=== PATIENT | female | born 1995 | race African-American/Black ===

== ENCOUNTER 2019-12-13 21:46 | Inpatient (IN) ==
[2019-12-13] MEDS ORDERED: ONDANSETRON 4 MG/2 ML VIAL IV PRN (21:54)
[2019-12-13 22:34] LABS: Basophils % 0.5 % (0.0-0.8); Eosinophils # 0.1 10*3/uL (0.0-0.87); Eosinophils % 0.7 % (0.00-10.9); Hematocrit 34.8 VOL% (35.7-47.0); Hemoglobin 11.7 GM/DL (12.0-16.0); Immature Granulocytes % 0.4 %; Immature Granulocytes Absolute 0.03 #; Lymphocytes # 1.8 10*3/uL (1.4-4.0); Lymphocytes % 21.4 % (21.3-54.2); Mean Corpuscular HGB Conc 33.6 GM/DL (32-36); Mean Corpuscular Volume 91.3 FL (87-102); Monocytes % 11.5 % (1.7-12.7); Neutrophils % 65.5 % (38.7-73.9); Platelet Count 156 T/CUMM (130-400); Red Blood Count 3.81 MC/CUMM (3.8-5.5); Red Cell Distribution Width 13.4 % (9.3-17.3); White Blood Count 8.2 T/CUMM (4-12)
[2019-12-13 22:57] LABS: Albumin 2.6 G/DL (3.4-5.0); Bilirubin,Total 0.5 MG/DL (0.2-1.0); Calcium 8.6 MG/DL (8.5-10.1); Osmolality,Calculated 271.8 MOS/KG (273-304); Total Protein 7.3 G/DL (6.4-8.3)
[2019-12-14] MEDS ORDERED: AMPICILLIN INJ 2,000 MG in SODIUM CHLORIDE 0.9% 100 ML IV ONE
[2019-12-14] MEDS: LACTATED RINGERS 1,000 ML IV SCH ×2 (00:06→19:23)
[2019-12-14] MEDS ORDERED: LACTATED RINGERS 1,000 ML IV ONE ×2 (04:00→08:43)
[2019-12-14] MEDS ORDERED: BUTORPHANOL 2 MG/ML VIAL IV PRN (04:00)
[2019-12-14] MEDS: AMPICILLIN INJ 1,000 MG in SODIUM CHLORIDE 0.9% 100 ML IV SCH ×3 (04:02→12:10)
[2019-12-14] MEDS ORDERED: PROMETHAZINE 25 MG/1 ML VIAL IM ONE (08:43)
[2019-12-14] MEDS ORDERED: ONDANSETRON 4 MG/2 ML VIAL IV ONE (08:43)
[2019-12-14] MEDS ORDERED: diphenhydrAMINE 50 MG/1 ML VIAL IV PRN ×2 (08:43)
[2019-12-14] MEDS ORDERED: FAMOTIDINE 20 MG/2 ML VIAL IV ONE (08:43)
[2019-12-14] MEDS ORDERED: CITRIC ACID/SODIUM CITRATE 30 ML UDCUP PO ONE (08:43)
[2019-12-14] MEDS ORDERED: ePHEDrine 50 MG/ML VIAL IV PRN (08:43)
[2019-12-14] MEDS ORDERED: NALOXONE 0.4 MG/ML VIAL IV PRN (08:43)
[2019-12-14] MEDS ORDERED: hydrOXYzine HCL 25 MG/1 ML VIAL IM PRN (08:43)
[2019-12-14] MEDS: fentaNYL 2 MCG/ROPIV 0.2% EPID 100 ML EPIDURAL SCH ×2 (09:34→15:45)
[2019-12-14 11:02] LABS: Apearance,Urine CLEAR (Clear); Bilirubin,Urine Negative (Negative); Blood, Urine Negative (Negative); Glucose,Urine (UA) Negative (Negative); Ketones,Urine Negative (Negative); Mucus,Urine Occasional /LPF (Occasional); Nitrite,Urine Negative (Negative); Protein,Urine Negative; RBC,Urine <1 /HPF (0-4); Squamous Epithelial Cell,Urine Occasional /HPF (0-10); Urine Color Amber (Yellow); Urine Specific Gravity 1.023 (1.001-1.035); WBC,Urine <1 /HPF (0-6)
[2019-12-14] MEDS ORDERED: OXYTOCIN/LR 20 UNIT/1,000 ML BAG IV SCH (12:30)
[2019-12-14] MEDS ORDERED: TRANEXAMIC ACID 1,000 MG/10 ML VIAL ONE (16:14)
[2019-12-14] MEDS ORDERED: miSOPROStoL 200 MCG TABLET ONE (16:14)
[2019-12-14] MEDS ORDERED: METHYLERGONOVINE 0.2 MG/1 ML AMP ONE (16:15)
[2019-12-14] MEDS ORDERED: CARBOPROST TROMETHAMINE 250 MCG/ML AMP IM ONE (16:15)
[2019-12-14] MEDS ORDERED: LIDOCAINE 1% 50 ML VIAL ONE (16:15)
[2019-12-14 17:09] LABS: Cord Arterial Blood HCO3 17.8 MMOL/L
[2019-12-14 17:13] LABS: Cord Venous Blood HCO3 20.5 MMOL/L; Cord Venous Blood PCO2 52.1 MMHG; Cord Venous Blood PO2 25.9
[2019-12-14] MEDS ORDERED: ACETAMINOPHEN 325 MG TABLET PO PRN (18:11)
[2019-12-14] MEDS ORDERED: RHO(D) IMMUNE GLOBULIN 300 MCG SYRINGE IM ONE (18:11)
[2019-12-14] MEDS ORDERED: DIPH/TET/ACEL PERT BOOSTER VACCINE 0.5 ML VIAL IM ONE (18:11)
[2019-12-14] MEDS ORDERED: MEASLES/MUMPS/RUBELLA VACCINE 0.5 ML VIAL SUBCUT ONE (18:11)
[2019-12-14] MEDS ORDERED: WITCH HAZEL PADS 100/JAR TOP PRN (18:11)
[2019-12-14] MEDS ORDERED: HYDROCORTISONE 2.5% RECTAL CREAM 30 GM TUBE TOP PRN (18:11)
[2019-12-14] MEDS ORDERED: BISACODYL 10 MG SUPP RECTAL PRN (18:11)
[2019-12-14] MEDS ORDERED: oxyCODONE/ACETAMINOPHEN 5-325 MG TABLET PO PRN (18:11)
[2019-12-14] MEDS ORDERED: OXYTOCIN/LR 20 UNIT/1,000 ML BAG IV ONE (18:11)
[2019-12-14] MEDS ORDERED: LANOLIN 50% CREAM 0.3 OZ TUBE TOP PRN (18:11)
[2019-12-14] MEDS ORDERED: BENZOCAINE 20%/MENTHOL 0.5% SPRAY 56 GM CAN TOP PRN (18:11)
[2019-12-14] MEDS ORDERED: ONDANSETRON 4 MG/2 ML VIAL IV PRN (18:11)
[2019-12-14] MEDS: IBUPROFEN 800 MG TABLET PO PRN (19:34)
[2019-12-14] MEDS: DOCUSATE SODIUM 100 MG CAPSULE PO SCH (21:33)
[2019-12-15] MEDS ORDERED: ACETAMINOPHEN 500 MG TABLET PO PRN (01:53)
[2019-12-15] MEDS ORDERED: ACETAMINOPHEN 500 MG TABLET ONE (01:56)
[2019-12-15 05:56] LABS: Basophils % 0.3 % (0.0-0.8); Eosinophils % 0.2 % (0.00-10.9); Hematocrit 30.3 VOL% (35.7-47.0); Hemoglobin 10.1 GM/DL (12.0-16.0); Immature Granulocytes % 0.6 %; Immature Granulocytes Absolute 0.08 #; Lymphocytes # 1.1 10*3/uL (1.4-4.0); Lymphocytes % 8.2 % (21.3-54.2); Mean Corpuscular HGB Conc 33.3 GM/DL (32-36); Mean Corpuscular Volume 91.5 FL (87-102); Mean Platelet Volume 13.5 FL (9.6-12.0); Monocytes % 10.9 % (1.7-12.7); Neutrophils % 79.8 % (38.7-73.9); Platelet Count 118 T/CUMM (130-400); Red Blood Count 3.31 MC/CUMM (3.8-5.5); Red Cell Distribution Width 13.4 % (9.3-17.3)
[2019-12-15] MEDS: DOCUSATE SODIUM 100 MG CAPSULE PO SCH ×2 (07:59→21:35)
[2019-12-15] MEDS: oxyCODONE/ACETAMINOPHEN 5-325 MG TABLET PO PRN ×2 (08:00→21:35)
[2019-12-15] MEDS: IBUPROFEN 800 MG TABLET PO PRN (12:48)
[2019-12-16 11:43] VITALS: BP 113/63
[2019-12-16] MEDS: DOCUSATE SODIUM 100 MG CAPSULE PO SCH (14:33)
== END 2019-12-16 12:30 | disposition home or self-care (01) | DRG 807 ==
LOC: N.LAB 21:46 → N.LD 21:47 → N.OB 12-14 20:23
PROVIDERS: ADMIT Obstetrics & Gynecology; ATTEND Obstetrics & Gynecology